=== PATIENT | male | born 2000 | race Caucasian/White ===

== ENCOUNTER 2025-02-14 20:44 | Emergency (ER) | payer OTHER ==
[~2025-02-14] VITALS: Ht 170.2 cm; Wt 70.7 kg
[2025-02-14 22:04] LABS: BASO # 0.0 10^3/uL (0.0-0.2); BASO % 0.5 % (0.0-1.0); EOS # 0.0 10^3/uL (0.0-0.5); EOS % 0.4 % (0.0-3.0); LYMPH # 1.9 10^3/uL (1.5-5.0); LYMPH % 23.5 % (24.0-44.0); MONO # 0.7 10^3/uL (0.0-0.8); MONO % 8.8 % (2.0-8.0); NEUTROPHILS # 5.2 10^3/uL (1.5-8.5); NEUTROPHILS % 66.7 % (36.0-66.0); PLATELET COUNT, AUTOMATED 265 10^3/uL (150-450)
[2025-02-14 22:28] LABS: ALT/SGPT 22 U/L (7.0-40); AST/SGOT 15 U/L (<34); CALCIUM LEVEL 9.7 MG/DL (8.5-10.1); CARBON DIOXIDE LEVEL 22 MMOL/L (20-31); CHLORIDE LEVEL 108 MMOL/L (98-107); CREATININE FOR GFR 1.15 MG/DL (0.70-1.30); GLOMERULAR FILTRATION RATE > 90.0 (>60); POTASSIUM SERUM 3.8 MMOL/L (3.5-5.1); SODIUM LEVEL 143 MMOL/L (136-145)
[2025-02-15] MEDS ORDERED: ISOVUE-370 76% 100 ML VIAL As Ordered ONE (00:38)
[2025-02-15] MEDS: NS (Normal Saline) 0.9% 1,000 ML IV ONE (01:00)
[2025-02-15] MEDS: ONDANSETRON 4MG/2ML VIAL IV ONE (01:00)
[2025-02-15] MEDS ORDERED: KETOROLAC 30 MG/ML 1 ML VIAL IV ONE (01:30)
[2025-02-15] MEDS ORDERED: ONDA-282 PO (01:53)
[2025-02-15 01:56] VITALS: BP 126/59; TEMP 100.1; O2SAT 98
== END 2025-02-15 02:04 | disposition home or self-care (01) ==
LOC: M ED 20:44
DX: A08.4 Viral intestinal infection, unspecified (principal); M43.16 Spondylolisthesis, lumbar region
CPT/HCPCS: 74177; 80053; 83690; 85025; 96361; 96374; 99284; J2405; Q9967